=== PATIENT | female | born 1975 | race Two or more races ===

== ENCOUNTER 2017-09-26 22:34 | Emergency (ER) | payer MEDICAID ==
[~2017-09-26] VITALS: Ht 157.5 cm; Wt 68.0 kg
[~2017-09-26 22:34] MED LIST: IBUP600T27; TYLENOL
[2017-09-26 23:51] LABS: Urine Amorphous Crystal FEW /hpf (None Seen); Urine Bacteria FEW /hpf (None Seen); Urine Blood Negative /uL (Negative); Urine Specific Gravity 1.019 (1.001-1.035); Urine WBC <1 /hpf (0 - 5)
[2017-09-26 23:56] LABS: Basophils # (auto) 0 uL; Basophils % (auto) 0.4 % (0.0-2.0); Eosinophils # (auto) 0.2 uL; Eosinophils % (auto) 2.2 % (0.0-7.0); Hematocrit 39.4 % (36.0-46.0); Hemoglobin 13.4 g/dL (12.2-16.2); Lymphocytes # (auto) 2.5 uL; Lymphocytes % (auto) 25.7 % (10.0-50.0); Mean Corpuscular Hemoglobin 30.3 pg (28.0-32.0); Mean Corpuscular Hgb Conc. 33.9 g/dL (32.0-36.0); Mean Corpuscular Volume 89.5 fL (80.0-100.0); Monocytes # (auto) 0.7 uL; Monocytes % (auto) 7.8 % (0.0-12.0); Neutrophils # (auto) 6.1 uL; Neutrophils % (auto) 63.9 % (37.0-80.0); Platelet Count (auto) 295 10^3/uL (140-450); Red Blood Cells 4.41 10^6/uL (4.0-5.20); Red Cell Distribution Width 13.6 % (11.8-14.3); White Blood Cell 9.6 10^3/uL (4.4-10.8)
[2017-09-27 00:01] LABS: Albumin 3.5 g/dL (3.4-5.0); BUN/Creatinine Ratio 22.5; Calcium 8.5 mg/dL (8.5-10.1); Potassium 3.9 mmol/L (3.5-5.1)
[2017-09-27 00:04] LABS: Bilirubin, Total 0.2 mg/dL (0.2-1.0); Total Protein 7.5 g/dL (6.4-8.2)
[2017-09-27] MEDS ORDERED: HYDROcodone-ACET 10/325MG TAB PO ONE (01:45)
[2017-09-27 02:00] VITALS: BP 119/69
== END 2017-09-27 02:44 | disposition home or self-care (01) ==
LOC: ER 22:45
DX: R51 Headache (principal); E11.9 Type 2 diabetes mellitus without complications
CPT/HCPCS: 36415; 70450; 80053; 81001; 81025; 85025